=== PATIENT | male | born 1950 | race Caucasian/White ===

== ENCOUNTER 2022-08-16 14:19 | Emergency (ER) | payer MEDICARE, OTHER ==
[~2022-08-16] VITALS: Ht 167.6 cm; Wt 77.1 kg
[2022-08-16 14:21] VITALS: BP 110/84
--- NOTE | 2022-08-16 14:33 | NUR ---
PT AMB TO BED 8.
[2022-08-16 15:50] LABS: APPEARANCE,URINE CLOUDY (CLEAR); BILIRUBIN,URINE NEGATIVE (NEGATIVE); BLOOD, URINE 3+ (NEGATIVE); COLOR,URINE YELLOW (YELLOW); LEUKOCYTE ESTERASE ,URINE 2+ (NEGATIVE); NITRITE, URINE NEGATIVE (NEGATIVE); UGLUCOSE NEGATIVE (NEGATIVE)
[2022-08-16 16:04] LABS: OTHER CASTS, URINE None Seen /LPF (None Seen); RBC,URINE 20-50 /HPF (0-5); WBC,URINE 16-25 (MOD) /HPF (0-5)
[2022-08-16] MEDS ORDERED: CIPR500T4 PO (16:19)
[2022-08-16 16:37] VITALS: BP 122/79
--- NOTE | 2022-08-19 18:16 | NUR ---
LATE ENTRY, RECEIVED POSITIVE URINE CULTURE. FORM GIVEN TO DR MICHAEL, TREATMENT APPROPRIATE. FORM PLACED IN BINDER
== END 2022-08-16 16:37 | disposition home or self-care (01) ==
LOC: MED 14:19
DX: N30.01 Acute cystitis with hematuria (principal); Z79.899 Other long term (current) drug therapy
CPT/HCPCS: 81001; 87086; 99283